=== PATIENT | male | born 1950 | race Caucasian/White ===

== ENCOUNTER 2017-09-06 07:33 | Emergency (ER) | payer MEDICARE, OTHER ==
[2017-09-06] MEDS ORDERED: Lidocaine 1% 10 ML MDV INJECT ONE (07:47)
--- NOTE | 2017-09-06 08:03 | EDM.PDOC ---
ED HPI GENERAL MEDICAL PROBLEM - General Chief Complaint: Laceration Stated Complaint: RIGHT LEG LAC Time Seen by Provider: 09/06/17 07:40 Source of Information: Reports: Patient, Family (Friend) History Limitations: Reports: No Limitations - History of Present Illness INITIAL COMMENTS - FREE TEXT/NARRATIVE: 67-year-old male presents the ED with a laceration to the lateral aspect of his right lower leg. He states his occurred when he slipped with a knife followed turkey hunting this morning. Suffered a partially at 3-3.5 cm laceration lateral mid calf. Believes his tetanus toxoid is up-to-date about 3 years ago. He is not on any blood thinners. Onset: Today Onset Date: 09/06/17 Onset Time: 06:30 Duration: Minutes: Location: Reports: Lower Extremity, Right (Right lower mid calf.) Quality: Reports: Ache, Burning Severity: Mild (Mild) Improves with: Reports: None Worsens with: Reports: None Context: Reports: Trauma (Slipped with a knife). 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: Other (see below) (None.) - Related Data Allergies Allergy/AdvReac Type Severity Reaction Status Date / Time lisinopril Allergy Cough Verified 09/06/17 07:44 Past Medical History Cardiovascular History: Reports: High Cholesterol, Hypertension Social & Family History - Living Situation & Occupation Occupation: Retired ED ROS GENERAL - Review of Systems Review Of Systems: See Below Constitutional: Denies: Fever, Chills, Malaise, Weakness, Fatigue, Decreased Appetite, Weight Loss HEENT: Reports: No Symptoms Respiratory: Reports: No Symptoms Cardiovascular: Reports: Blood Pressure Problem Endocrine: Reports: No Symptoms GI/Abdominal: Reports: No Symptoms : Reports: No Symptoms Musculoskeletal: Reports: Other (Also arthritic problems with knees hips and lower back at times) Skin: Reports: No Symptoms Neurological: Reports: No Symptoms Psychiatric: Reports: No Symptoms ED EXAM, SKIN/RASH Exam: See Below Exam Limited By: No Limitations General Appearance: Alert, No Apparent Distress Peripheral Pulses: 2+: Posterior Tibial (L), Posterior Tibial (R), Dorsalis Pedis (L), Dorsalis Pedis (R) Extremities: Other (Examination confined primarily to the right lower extremity. He has suffered a 3 cm laceration to the outer or lateral aspect of the mid right calf. It is relatively superficial but is actively bleeding at time of exam. No evidence of muscular or tendon involvement.) Neurological: Alert, Oriented, CN II-XII Intact, Normal Cognition Psychiatric: Normal Affect, Normal Mood Skin: Warm, Dry, Intact, Normal Color, No Rash ED SKIN PROCEDURES - Laceration/Wound Repair Right Middle Lateral Leg Lac/Wound length In cm: 3.0 Appearance: Subcutaneous, Stellate Distal NVT: Neuro & Vascular Intact, No Tendon Injury Anesthetic Type: Local Local Anesthesia - Lidocaine (Xylocaine): 1% Plain Local Anesthetic Volume: 3cc Skin Prep: Saline Exploration/Debridement/Repair: Wound Explored Closed with: Sutures Suture Size: 3-0 # of Sutures: 8 Suture Type: Nylon, Interrupted, Simple Course - Vital Signs Last Recorded V/S: Last Vital Signs Temp 36.6 C 09/06/17 07:45 Pulse 64 09/06/17 07:45 Resp 18 09/06/17 07:45 BP 157/90 H 09/06/17 07:45 Pulse Ox 99 09/06/17 07:45 - Orders/Labs/Meds Meds: Medications Discontinued Medications Generic Name Dose Route Start Last Admin Trade Name Freq PRN Reason Stop Dose Admin Lidocaine HCl 10 ml 09/06/17 07:47 09/06/17 07:54 Xylocaine 1% INJECT 09/06/17 07:48 10 ml ONETIME ONE Administration - Radiology Interpretation Free Text/Narrative:: 67-year-old male presents to the ED with a 3 cm laceration to the lateral aspect of his mid right calf. This occurred as a result of a hunting accident when he tripped and fell and essentially stabbed himself with his own hunting knife. The wound is superficial does not involve muscle or fascia . Wound was anesthetized with 1% non-buffered lidocaine and sutured 8 to provide hemostasis and wound closure. Sutures will need to be removed in 10 days' time. Departure - Departure Time of Disposition: 08:06 Disposition: Home, Self-Care 01 Condition: Fair Clinical Impression: Laceration of leg not thigh, right Qualifiers: Encounter type: initial encounter Qualified Code(s): S81.811A - Laceration without foreign body, right lower leg, initial encounter - Discharge Information Referrals: PCP,Not In Area [Primary Care Provider] - Forms: ED Department Discharge Additional Instructions: Evaluation the emergency room today in regards to a 3 cm laceration to the outer aspect of the right lower leg. This occurred as a result of a hunting accident and a superficial wound occurred from a knife puncture wound. Wound was cleansed and then sutured 8 sutures to provide wound closure. Treatment is daily cleanse the wound with soap and water. Showering is okay. Then apply topical antibiotic such as bacitracin or Polysporin to the wound once daily and cover with a bandage to keep clean and from clothing rubbing on it. Sutures will need to be removed in 10 days' time. He would need to return to medical care if you see any increased redness swelling or obvious pus formation.
== END 2017-09-06 09:02 | disposition home or self-care (01) ==
LOC: JD.ED 07:33
DX: S81.811A Laceration without foreign body, right lower leg, initial encounter (principal); I10 Essential (primary) hypertension; E78.00 Pure hypercholesterolemia, unspecified; Z88.8 Allergy status to other drugs, medicaments and biological substances; W01.118A Fall on same level from slipping, tripping and stumbling with subsequent striking against other sharp object, initial encounter
CPT/HCPCS: 12002; 99282-25; 99283-25